=== PATIENT | female | born 2005 | race Caucasian/White ===

== ENCOUNTER → 2024-01-18 09:20 | Outpatient (REF) | payer OTHER, SELFPAY | LOC: HWRAD 09:20 | PROVIDERS: ATTENDING PHYSICIAN Nurse Practitioner; FAMILY PHYSICIAN Physician Assistant | DX: N30.10 Interstitial cystitis (chronic) without hematuria (principal) | CPT/HCPCS: 76770; 76856 ==

== ENCOUNTER 2024-01-25 15:42 | Emergency (ER) | payer OTHER, SELFPAY ==
[2024-01-25 15:45] VITALS: BP 158/94
[2024-01-25 16:11] LABS: % Basophils 0.5 % (0-2); % Eosinophils 0.7 % (0-6); % Immature Granulocytes 0.2 % (0-0.5); % Lymphocytes 19.9 % (20.5-51.1); % Monocytes 6.1 % (1.7-9.3); % Neutrophils 72.6 % (42.2-75.2); Absolute Basophils 0.1 10^3/uL (0-0.2); Absolute Eosinophils 0.1 10^3/uL (0-0.7); Absolute Lymphocytes 2.1 10^3/uL (1.2-3.4); Absolute Monocytes 0.7 10^3/uL (0.1-0.6); Absolute Neutrophils 7.8 10^3/uL (1.4-6.5); Hematocrit 40.9 % (37.0-47.0); Hemoglobin 14.8 g/dL (12.0-16.0); Mean Corp Hgb Conc. 36.2 g/dL (33.0-37.0); Mean Corpuscular Hgb 31.2 pg (27.0-31.0); Mean Corpuscular Volume 86.3 fL (81.0-99.0); Mean Platelet Volume 9.4 fL (7.4-10.4); Nucleated Red Blood Cells % 0 %; Platelet Count 251 10^3/uL (130-400); Red Blood Cell Count 4.74 10^6/uL (4.20-5.40); Red Cell Dist. Width 11.8 % (11.5-14.5); White Blood Cell Count 10.7 10^3/uL (4.8-10.8)
[2024-01-25 16:12] LABS: Urine Albumin Trace (Neg - Trace); Urine Bilirubin Negative (Negative); Urine Character Very Cloudy (Clear); Urine Color Yellow; Urine Glucose Negative (Negative); Urine Ketone Negative (Negative); Urine Leukocyte 1+ (Negative); Urine Nitrite Negative (Negative); Urine Occult Blood Negative (Negative); Urine Specific Gravity 1.025 (<1.030); Urine Urobilinogen Negative (Neg - 1+)
[2024-01-25 16:24] LABS: HCG, Serum Qualitative Screen Negative
[2024-01-25 16:27] LABS: ALT (SGPT) 26 U/L (0-35); AST (SGOT) 37 U/L (14-36); Albumin 4.9 g/dl (3.5-5.0); Alkaline Phosphatase 63 U/L (38-126); Blood Urea Nitrogen 13 mg/dl (7-17); Calcium 9.8 mg/dl (8.4-10.2); Carbon Dioxide 23 mmol/L (22-30); Chloride 102 mmol/L (98-107); Glucose 112 mg/dl (70-99); Potassium 4.4 mmol/L (3.5-5.1); Sodium 134 mmol/L (135-145); Total Bilirubin 0.9 mg/dl (0.2-1.3); Total Protein 7.5 g/dl (6.3-8.2); eGFR > 60.00
[2024-01-25 16:39] LABS: Lipase 74 U/L (23-300)
[2024-01-25 16:42] LABS: Urine Bacteria Moderate (Negative); Urine Red Blood Cell 0-2 /HPF (0-2); Urine Squamous Cell >30 /LPF (Few); Urine White Cell 26-30 /HPF (0-5)
[2024-01-25 18:03] VITALS: BP 125/75; BMI 23.2
--- NOTE | 2024-01-25 18:17 | ED.GENMED ---
History of Present Illness
General
Chief Complaint: Abdominal Pain
Source: patient
Exam Limitations: none
Time Seen by Provider: 01/25/24 18:01
Nursing documentation reviewed up to this point in time: agreed with
History of Present Illness
History of Present Illness:
Patient is a 18-year-old female who presents ER for evaluation. Patient reports this morning while lifting her 3-month-old nephew she had felt pain in her left back into left shoulder she reports he is only couple pounds and was concerned by this
pain. She does feel pain with movement of her left arm/shoulder. She does have some mild pain with deep breath. Mom was concerned because recently patient has had some health issues. She had an ultrasound ordered by urology to investigate
recurrent UTIs and ultrasound she was found to have splenomegaly. She does admit to feeling sleepy and very tired with decreased appetite and intermittent nausea for the past 1 week. She denies or any sore throat fever or chills. Has not been
tested for mono.
She does have recurrent UTIs and had cystoscopy by urology as well as ultrasound which was normal other than splenomegaly. She does have chronic dysuria this is not new. No new fevers.
Patient does vape nicotine/marijuana. No history of DVT /PE.
Patient is on oral control.
Past History
Past History
ED Past Medical History: Psychiatric (Depression, Eating disorder)
ED Past Surgical History: None
Social History
Tobacco: Smoker
Alcohol: None
Personal: Single
Living: with family
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
Review of Systems
Review of Systems
Allergies reviewed?: Yes
All Other Systems: ROS reviewed and negative except as documented in HPI and ROS
Constitutional: Reports no symptoms; Denies fever, fatigue or chills
EENT: Reports no symptoms; Denies sore throat or runny nose
Respiratory: Reports other (mild pain with deep breath ); Denies cough or trouble breathing
Cardiac: Reports no symptoms
ABD/GI: Reports no symptoms
: Reports no symptoms
Musculoskeletal: Reports back pain (Left back pain on shoulder blade into left shoulder)
Skin: Reports no symptoms
Neurological: Reports no symptoms
Hematologic/Lymphatic: Reports no symptoms
Psychiatric: Reports no symptoms
Phy Exam
General Physical Exam
General Presentation: no apparent distress
General age: appears stated age
General Skin: warm and dry
General Habitus: normal
General Mental: alert
General Hydration: appears well hydrated
Cardiovascular Exam
Cardiovascular Exam: regular rate/rhythm, no murmur and normal peripheral pulses
Pulmonary Exam
Pulmonary Exam: lungs clear and no respiratory distress
Gastrointestinal Exam
Gastrointestinal Exam: non tender and soft
Neurological Exam
Neurological Exam: alert and oriented x3
Musculoskeletal Exam
Musculoskeletal Exam: full ROM and other (Full range of motion to left shoulder however patient does have pain in the left upper back with moving left shoulder normal inspection no swelling)
Skin Exam
Skin Exam: normal color and warm/dry
Psychiatric Exam
Psychiatric Exam: normal mood/affect
Course
Orders/Labs/Results
Orders:
Orders
01/25/24 15:49
EKG [Electrocardiogram (*1)] Urgent
Reason for Study: Abdominal Pain
EKG- Treatment ONCE
01/25/24 15:50
Test Result ONCE
01/25/24 15:54
CBC/With Diff [Complete Blood Count/With Diff] Urgent
CMP [Comprehensive Metabolic Panel] Urgent
Free T4 Urgent
HCG, Serum Qualitative Screen Urgent
Lipase Urgent
Monotest Urgent
Comment: ADD ON
TSH Reflex To Free T4 Urgent
Comment: ADD ON
Urinalysis Reflex To Culture Urgent
Date Specimen was Collected: 01/25/24
Time Specimen was Collected: 15:50
Urine Microscopic Reflex Cult Urgent
Urine Culture Urgent
TRACY Source: U
Specimen Description:
Date Specimen was Collected: 01/25/24
Time Specimen was Collected: 15:50
01/25/24 18:35
Add On- LAB Urgent
Tests Added?: mono
01/25/24 18:44
DDimer [D-Dimer] Urgent
01/25/24 20:13
Ketorolac [Toradol] 30 mg IM NOW STA
01/25/24 20:16
Add On- LAB Urgent
Tests Added?: tsh with reflexive t4
Abnormal Lab Results
01/25/24
15:54
MCH 31.2 H pg
(27.0-31.0)
Absolute Neuts (auto) 7.8 H 10^3/uL
(1.4-6.5)
Absolute Monos (auto) 0.7 H 10^3/uL
(0.1-0.6)
Lymphocytes % 19.9 L %
(20.5-51.1)
Sodium 134 L mmol/L
(135-145)
Glucose 112 H mg/dl
(70-99)
AST 37 H U/L
(14-36)
TSH (Reflex) 0.35 L uIU/ml
(0.47-4.68)
Leukocyte Esterase Rfl 1+ A
(Negative)
Urine WBC (Reflex) 26-30 A /HPF
(0-5)
Urine Bacteria (Reflex) Moderate A
(Negative)
01/25/24 15:54
01/25/24 15:54
Vital Signs
Initial and Last Documented VS:
Initial Vital Signs
Temp Pulse Resp BP Pulse Ox
98.9 F 117 18 158/94 97
01/25/24 15:45 01/25/24 15:45 01/25/24 15:45 01/25/24 15:45 01/25/24 15:45
Last Documented Vital Signs
Temp Pulse Resp BP Pulse Ox
98.5 F 86 16 125/75 98
01/25/24 18:03 01/25/24 18:03 01/25/24 18:03 01/25/24 18:03 01/25/24 18:03
MDM/Problems Addressed
Differential Diagnosis Includes:
Not limited to musculoskeletal pain, less likely PE chronic UTI
MDM/Problems Addressed:
Patient is a 18-year-old female who presented here to the ER for evaluation of left shoulder pain back pain she noticed this pain when lifting her 3-month-old nephew. Pain is worse with movement of left shoulder. She does feel pain with deep
breath but denies any shortness of breath. She does vape marijuana and nicotine and is on control therefore D-dimer was done and negative. She is in no acute distress lungs are clear nonhypoxic afebrile during ED visit here and treatment
are patient nontachycardic and very well-appearing. Abdomen soft nontender. Patient complains of left upper back discomfort with movement of shoulder this is likely muscular.
Mom was also concerned because patient recently had a workup for chronic UTI and during workup had an ultrasound which showed mild borderline splenomegaly. I did review this ultrasound from 01/17 which showed mild borderline splenomegaly. Patient
does report she has felt tired and sleeping more. I did a monotest which was negative.
She denies any fever chills she is afebrile with a normal white count stable stable hemoglobin. Patient has chronic UTI and is followed by urology. Patient has chronic dysuria patient does have 26-30 white blood cells however there are greater
than 30 squamous cells . we will hold off on treating.
Symptoms are consistent muscular pain patient was given Toradol here feeling much better will DC with ibuprofen and outpatient follow-up family doctor.
*Critical Care Note
Total Time (30-74mins, 75-104mins- exclusive of procedures): Not Applicable
ED Attending Note
-
Portions of this chart may have been created with voice recognition software.� Occasional wrong word or��sound alike� substitutions may have occurred due to the inherent limitations of voice recognition software.
Discharge Plan
Departure
Patient Disposition: Home (Routine Discharge)
Date of Disposition: 01/25/24
Time of Disposition: 21:00
Patient with high blood pressure during this ER visit?: Yes
Condition: Fair
Covid-19: Not Applicable
Discharge Problem:
Back pain
Instructions: Back Pain
Prescriptions:
No Action
ondansetron 4 mg tablet,disintegrating
4 mg PO Q8H PRN (Reason: nausea and vomiting) Qty: 10 0RF
Referrals:
Iesha Espinoza PA [Family Provider] -
Activity Restrictions/Additional Instructions:
As discussed you may take ibuprofen every 8 hours with food and alternate with Tylenol. Follow-up closely with your family doctor for further evaluation of borderline splenomegaly incidentally found on ultrasound and for re-evaluation of your
current symptoms.
You will be notified if your urine culture is positive for infection
Ice affected area for the first 24 hours follow emergency return if any worsening of symptoms
Interventions
Interventions:
*Risk Screen - Suicide Last Done: 01/25/24 15:45
*General Assessment Last Done: 01/25/24 15:45
*Neglect/Abuse Screening Last Done: 01/25/24 18:03
ED- Fall Risk Assessment Last Done: 01/25/24 18:03
*ED COVID-19 Vaccine History Last Done: 01/25/24 18:03
*Nursing Disposition Last Done: 01/25/24 21:45
WC-Rvoayn-Yuhtsnmonh Assessment Last Done: 01/25/24 18:03
Discharge Date and Time
Discharge Date/Time: 01/25/24 21:46
Print Language: LATVIAN
[2024-01-25 19:09] LABS: Monotest Negative (Negative)
[2024-01-25 19:53] LABS: D-Dimer < 0.27 ug/mlFEU (0.00-0.50)
[2024-01-25] MEDS: TORADOL 30 MG IM (20:47)
[2024-01-25 21:13] LABS: TSH Reflex To Free T4 0.35 uIU/ml (0.47-4.68)
[2024-01-25 21:46] LABS: Free T4 1.68 ng/dl (0.78-2.19)
== END 2024-01-25 21:46 | disposition home or self-care (01) ==
LOC: EMR 15:42
PROVIDERS: Emergency Medicine; Nurse Practitioner; EMERGENCY PHYSICIAN Emergency Medicine; FAMILY PHYSICIAN Physician Assistant
DX: M54.9 Dorsalgia, unspecified (principal); M25.512 Pain in left shoulder; R07.81 Pleurodynia; M79.602 Pain in left arm; R10.9 Unspecified abdominal pain; R19.7 Diarrhea, unspecified; R11.0 Nausea; R53.83 Other fatigue; R16.1 Splenomegaly, not elsewhere classified; F32.A Depression, unspecified; K21.9 Gastro-esophageal reflux disease without esophagitis; F50.9 Eating disorder, unspecified; F17.290 Nicotine dependence, other tobacco product, uncomplicated; Z79.3 Long term (current) use of hormonal contraceptives; Z87.440 Personal history of urinary (tract) infections; Z86.16 Personal history of COVID-19
CPT/HCPCS: 99284; 96372; 80053; 81003; 81015; 83690; 84439; 84443; 84703; 85025; 85379; 86308; 87086; 93005

== ENCOUNTER → 2024-02-23 07:25 | Outpatient (REF) | payer OTHER, SELFPAY | LOC: HWRAD 07:25 | PROVIDERS: ATTENDING PHYSICIAN Family Medicine | DX: R16.1 Splenomegaly, not elsewhere classified (principal); R79.89 Other specified abnormal findings of blood chemistry; R74.01 Elevation of levels of liver transaminase levels | CPT/HCPCS: 76700 ==

== ENCOUNTER 2024-02-29 12:50 | Outpatient (RCR) | payer OTHER, SELFPAY | END 2024-02-29 23:59 | disposition home or self-care (01) | LOC: RPT 12:50 | PROVIDERS: ATTENDING PHYSICIAN Nurse Practitioner; FAMILY PHYSICIAN Physician Assistant | DX: M62.89 Other specified disorders of muscle (principal); N30.10 Interstitial cystitis (chronic) without hematuria; N39.41 Urge incontinence; R10.2 Pelvic and perineal pain; Z73.6 Limitation of activities due to disability | CPT/HCPCS: 97110; 97112; 97140; 97162 ==

== ENCOUNTER 2024-03-28 12:51 | Outpatient (RCR) | payer OTHER, SELFPAY | END 2024-03-28 23:59 | disposition home or self-care (01) | LOC: RPT 12:51 | PROVIDERS: ATTENDING PHYSICIAN Nurse Practitioner; FAMILY PHYSICIAN Physician Assistant | DX: M62.89 Other specified disorders of muscle (principal); N30.10 Interstitial cystitis (chronic) without hematuria; N39.41 Urge incontinence; R10.2 Pelvic and perineal pain; Z73.6 Limitation of activities due to disability; Z87.440 Personal history of urinary (tract) infections | CPT/HCPCS: 97014; 97110; 97112; 97140; 97530 ==

== ENCOUNTER 2024-04-18 12:58 | Outpatient (RCR) | payer OTHER, SELFPAY | END 2024-04-18 23:59 | disposition home or self-care (01) | LOC: RPT 12:58 | PROVIDERS: ATTENDING PHYSICIAN Nurse Practitioner; FAMILY PHYSICIAN Physician Assistant | DX: M62.89 Other specified disorders of muscle (principal); N30.10 Interstitial cystitis (chronic) without hematuria; N39.41 Urge incontinence; R10.2 Pelvic and perineal pain; Z73.6 Limitation of activities due to disability | CPT/HCPCS: 97014; 97110; 97112; 97140 ==

== ENCOUNTER 2024-05-23 14:05 | Outpatient (RCR) | payer OTHER, SELFPAY | END 2024-05-24 07:04 | disposition home or self-care (01) | LOC: RPT 14:05 | PROVIDERS: ATTENDING PHYSICIAN Nurse Practitioner; FAMILY PHYSICIAN Physician Assistant | DX: M62.89 Other specified disorders of muscle (principal); N30.10 Interstitial cystitis (chronic) without hematuria; N39.41 Urge incontinence; R10.2 Pelvic and perineal pain; Z73.6 Limitation of activities due to disability | CPT/HCPCS: 97014; 97110; 97112; 97140; 97530 ==

== ENCOUNTER 2024-10-06 00:08 | Emergency (ER) | payer SELFPAY ==
[2024-10-06 00:10] VITALS: BP 172/84
--- NOTE | 2024-10-06 01:19 | ED.GENMED ---
History of Present Illness
General
Chief Complaint: Skin Surface Trauma
Source: patient
Exam Limitations: none
Time Seen by Provider: 10/06/24 01:07
History of Present Illness
History of Present Illness:
Patient cut her finger at 3 PM with a knife. Tetanus up-to-date. Bleeding at home.
Past History
Past History
ED Past Medical History: Psychiatric (Depression, Eating disorder)
ED Past Surgical History: None
Social History
Tobacco: Smoker
Alcohol: None
Personal: Single
Living: with family
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
Phy Exam
Physical Exam
Physical Exam:
General: Nontoxic appearing in no distress
Skin: Warm and dry, no rash
Neuro: Alert, nontoxic, grossly nonfocal
Psychiatric: Good eye contact and appropriate
Musculoskeletal: Superficial avulsion left middle digit at the tuft. No active bleeding. Slight white appearance to the edge. Motor or sensory neurovascular intact
Course
Vital Signs
Initial and Last Documented VS:
Initial Vital Signs
Temp Pulse Resp BP Pulse Ox
97.4 F 116 18 172/84 98
10/06/24 00:10 10/06/24 00:10 10/06/24 00:10 10/06/24 00:10 10/06/24 00:10
Last Documented Vital Signs
Temp Pulse Resp BP Pulse Ox
97.4 F 116 18 172/84 98
10/06/24 00:10 10/06/24 00:10 10/06/24 00:10 10/06/24 00:10 10/06/24 00:10
MDM/Problems Addressed
Differential Diagnosis Includes:
Superficial fingertip avulsion. Clean wound Gelfoam and follow-up. Tetanus up-to-date
*Critical Care Note
Total Time (30-74mins, 75-104mins- exclusive of procedures): Not Applicable
ED Attending Note
-
Portions of this chart may have been created with voice recognition software.� Occasional wrong word or��sound alike� substitutions may have occurred due to the inherent limitations of voice recognition software.
Discharge Plan
Departure
Patient Disposition: Home (Routine Discharge)
Date of Disposition: 10/06/24
Time of Disposition: 01:19
Patient with high blood pressure during this ER visit?: Yes
Discharge Problem:
Left third digit fingertip avulsion
Instructions: Wound care - ED discharge instructions, BLOOD PRESSURE
Prescriptions:
No Action
ondansetron 4 mg tablet,disintegrating
4 mg PO Q8H PRN (Reason: nausea and vomiting) Qty: 10 0RF
Referrals:
Roya Osman MD [Family Provider] - Follow up in 2-3 days
Interventions
Interventions:
*Risk Screen - Suicide Last Done: 10/06/24 01:19
*General Assessment Last Done: 10/06/24 01:19
*Neglect/Abuse Screening Last Done: 10/06/24 01:19
*ED- Fall Risk Assessment Last Done: 10/06/24 01:19
*ED COVID-19 Vaccine History Last Done: 10/06/24 01:19
*Nursing Disposition Last Done: 10/06/24 01:25
ED-Skin Assessment Last Done: 10/06/24 01:18
Discharge Date and Time
Discharge Date/Time: 10/06/24 01:25
Print Language: CZECH
== END 2024-10-06 01:25 | disposition home or self-care (01) ==
LOC: EMR 00:08
PROVIDERS: EMERGENCY PHYSICIAN Emergency Medicine; FAMILY PHYSICIAN Family Medicine
DX: S61.213A Laceration without foreign body of left middle finger without damage to nail, initial encounter (principal); W26.0XXA Contact with knife, initial encounter; R03.0 Elevated blood-pressure reading, without diagnosis of hypertension; F50.9 Eating disorder, unspecified; F32.A Depression, unspecified; F17.200 Nicotine dependence, unspecified, uncomplicated; Z88.1 Allergy status to other antibiotic agents
CPT/HCPCS: 99282

== ENCOUNTER → 2025-05-21 07:44 | Outpatient (REF) | payer OTHER, SELFPAY | LOC: HWRAD 07:44 | PROVIDERS: ATTENDING PHYSICIAN Obstetrics & Gynecology Gynecology; FAMILY PHYSICIAN Family Medicine | DX: N94.12 Deep dyspareunia (principal) | CPT/HCPCS: 76830; 76856 ==